=== PATIENT | male | born 1945 | race Hispanic/Latino ===

== ENCOUNTER 2020-02-21 07:45 | Outpatient (CLI) | payer MEDICARE, OTHER ==
[2020-02-21] MEDS ORDERED: REGADENOSON 0.4 MG/5 ML INJ IV ONE ×2 (09:16→09:22)
--- NOTE | 2020-02-21 11:36 | Treadmill Report ---
CARDIAC NUCLEAR PERFUSION STUDY REASON FOR STUDY: Chest pain. IMAGING PROTOCOL: The patient received 10 mCi of Technetium 99m Tetrofosmin for resting image and 28 mCi of Technetium 99m Tetrofosmin for stress imaging. The imaging for the whole procedure was completed 30-90 minutes following the initial injection of Technetium 99m Tetrofosmin. The SPECT imaging in the 180 degree arc was performed in the right anterior oblique projection. Computerized reconstruction of the images was performed for analysis. IMAGING RESULTS: Normal cavity size from stress to rest. Normal distribution of radionuclide in the anterior, inferior, septal, and apical regions. Gated SPECT, 67%. The patient exercised on Tyler protocol for 8 minutes. The patient's resting heart rate was 73, peak heart rate was 151. Resting blood pressure 122/80, peak blood pressure 160/80. The patient had no EKG changes suggestive of ischemia. SUMMARY: 1. Negative treadmill EKG. 2. Good exercise capacity 8 minutes Tyler protocol. 3. No exaggerated BP response. No arrhythmia suggestive of ischemia. 4. Normal rest and stress myocardial perfusion scan. No significant stress ischemia. No wall motion abnormalities. Gated SPECT, EF is 67%. JOB# [id number] VEENA/GARY
== END 2020-02-21 07:46 | disposition home or self-care (01) ==
LOC: CARD 07:45
PROVIDERS: ATTEND Internal Medicine
DX: R07.89 Other chest pain (principal)
CPT/HCPCS: 78452; 93017; A9502; J2785